=== PATIENT | female | born 1990 | race Caucasian/White ===

== ENCOUNTER 2017-04-25 16:09 | Emergency (ER) | payer BC ==
[2017-04-25 17:04] VITALS: BP 103/71
--- NOTE | 2017-04-25 17:39 | UC ---
Ear Complaint HPI - HPI Summary HPI Summary: patient c/o earache starting a day ago right more than left. She has chronic nasal congestion and post nasal drip, specially for the past week. Denies cough , fever, hearing loss or myalgias. Currently on prednisone 5mg po daily and ASA as part of her fertility treatment. LMD 2 weeks ago. - History of Current Complaint Chief Complaint: UCEar Stated Complaint: EAR PAIN Time Seen by Provider: 04/25/17 17:19 Hx Last Menstrual Period: 2 wks ago Pain Intensity: 7 - Allergies/Home Medications Allergies/Adverse Reactions: Allergies Allergy/AdvReac Type Severity Reaction Status Date / Time codeine Allergy Rash Verified 04/25/17 17:05 Home Medications: Home Medications Aspirin EC Low Dose* [Ecotrin EC Low Dose 81 MG*] 1 tab PO DAILY 04/25/17 [ History Confirmed 04/25/17] Cholecalciferol TAB* [Vitamin D TAB*] 4,000 unit PO DAILY 04/25/17 [History Confirmed 04/25/17] Letrozole 5 mg PO DAILY 04/25/17 [History Confirmed 04/25/17] Naltrexone TAB* 3 mg PO DAILY 04/25/17 [History Confirmed 04/25/17] Pnv No.103/Folic/Om3s/Fish Oil [ Gummies] 4 tab PO DAILY 04/25/17 [ History Confirmed 04/25/17] predniSONE TAB* [Deltasone TAB*] 1 tab PO DAILY 04/25/17 [History Confirmed ] PMH/Surg Hx/FS Hx/Imm Hx Previously Healthy: Yes - Surgical History Surgical History: None - Social History Alcohol Use: None Substance Use Type: None Smoking Status (MU): Never Smoked Tobacco Review of Systems ENT: Ear Ache, Nasal Discharge, Sinus Congestion All Other Systems Reviewed And Are Negative: Yes Physical Exam Triage Information Reviewed: Yes Appearance: Well-Appearing, No Pain Distress, Well-Nourished Vital Signs: Initial Vital Signs Temp 97.9 F 04/25/17 17:01 Pulse 81 04/25/17 17:01 Resp 12 04/25/17 17:01 BP 103/71 04/25/17 17:01 Pulse Ox 100 04/25/17 17:01 Vital Signs Reviewed: Yes Eyes: Positive: Conjunctiva Clear ENT: Positive: Pharynx normal, TMs normal, Uvula midline Neck: Positive: Supple, Nontender, No Lymphadenopathy Respiratory: Positive: Chest non-tender, Lungs clear, Normal breath sounds, No respiratory distress Cardiovascular: Positive: RRR, No Murmur, Pulses Normal, Brisk Capillary Refill Skin Exam: Normal Ear Complaint Course/Dx - Course Course Of Treatment: Physical exam was normal, patient is flying in 5 days, start decongestant and flonase along with nasal toileting with normal saline. F/ u PCP, eustachian tube dysfunction. - Differential Dx/Diagnosis Provider Diagnoses: Earache. Eustachian tube dysfunction Discharge - Discharge Plan Condition: Stable Disposition: HOME Prescriptions: Fexofenadine/Pseudoephedrine [Radha-D 24 Hour Tablet] 1 each PO DAILY PRN #30 tab.er.24h PRN Reason: Congestion Fluticasone NASAL SPRAY 50MCG* [Flonase NASAL SPRAY 50MCG*] 2 spray BOTH NARES DAILY 7 Days #1 btl Patient Education Materials: Earache (ED) Referrals: Montez Dominguez NP [Primary Care Provider] -
== END 2017-04-25 17:37 | disposition home or self-care (01) ==
LOC: UCEAST 16:09
DX: H92.03 Otalgia, bilateral (principal); H69.90 Unspecified Eustachian tube disorder, unspecified ear; Z88.5 Allergy status to narcotic agent
CPT/HCPCS: 99212; G0463

== ENCOUNTER 2017-08-24 18:40 | Emergency (ER) | payer BC ==
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
[2017-08-24 21:32] LABS: Urine Appearance Cloudy; Urine Blood Negative (Negative); Urine Color Yellow; Urine Ketones Negative (Negative); Urine Protein 1+(30 mg/dL) (Negative); Urine Red Blood Cell 2+(6-10/hpf) (Absent); Urine Specific Gravity 1.027 (1.010-1.030); Urine Urobilinogen Negative (Negative); Urine White Blood Cell 1+(6-10/hpf) (Absent)
[2017-08-24 22:41] VITALS: BP 96/67
--- NOTE | 2017-08-25 07:41 | RAD ---
Indication: , trauma. Real-time sonography of the was performed. There is a single intrauterine gestation in cephalic presentation. There is anterior placenta without evidence of placenta previa. heart activity is noted at 1 43 bpm. movement is noted. Amniotic fluid index is within normal limits. The cervix is long and closed. The BPD measures 4.5 cm corresponding to gestational age of 19 weeks 4 days. Head circumference measures 16.7 cm corresponding to gestational age of 19 weeks 3 days. Abdominal discomfort measures 14.1 cm corresponding to gestational age of 19 weeks 4 days. Femur length measures 3.0 cm corresponding to gestational age of 19 weeks 3 days. Estimated gestational age is 19 weeks 4 days. Estimated weight is 291 g. No evidence of placental abruption is noted. IMPRESSION: Single intrauterine gestation with gestational age of 19 weeks 4 days. This is undetermined on today's initial ultrasound. Estimated date of delivery is January 18, 2018. heart activity and movement is noted. No evidence of placental abruption.
== END 2017-08-24 22:40 | disposition home or self-care (01) ==
LOC: ED 18:40
DX: O26.892 Other specified pregnancy related conditions, second trimester (principal); S39.91XA Unspecified injury of abdomen, initial encounter; W50.1XXA Accidental kick by another person, initial encounter; Y93.9 Activity, unspecified; Y92.9 Unspecified place or not applicable; R10.31 Right lower quadrant pain; Z3A.19 19 weeks gestation of pregnancy; Z88.5 Allergy status to narcotic agent; Z82.49 Family history of ischemic heart disease and other diseases of the circulatory system; Z83.49 Family history of other endocrine, nutritional and metabolic diseases; Z80.8 Family history of malignant neoplasm of other organs or systems
CPT/HCPCS: 76815; 81003; 81015; 87086; 99282

== ENCOUNTER 2018-01-14 12:06 | Inpatient (IN) | payer BC ==
--- NOTE | 2018-01-14 12:36 | HP ---
General Information - Reason for Visit contractions since midnight increasing in intensity and frequency - General Information Maternal Age: 27 Grav: 1 Para: 0 SAB: 0 IEA: 0 Estimated Due Date: 01/18/18 Determined By: Early Ultrasound Maternal Blood Type and Rh: A Positive - Results this Serology/RPR Result: Non-Reactive Rubella Result: Immune HBsAg Result: Negative - 07/15/2017 HIV Result: Negative - 07/15/2017 GBS Culture Result: Positive Past Medical History Delivery History: See Records Pertinent Past Medical History: See Records - anixety, PCOS, infertility Pertinent Past Surgical History: None Pertinent Family History: See Records - hyperthyroid, HTN, melanoma, dementia Review of Systems Constitutional: Uncomfortable CV Complaint: No Respiratory: Shortness of Breath: No Gastrointestinal: No Nausea/Vomiting, Normal Bowel Movement Genitourinary: No Dysuria, No Bleeding, No Leaking Fluid Musculoskeletal: Back Pain, Contractions Neurological: No Headache, No Visual Changes Movement: Normal Exam Allergies/Adverse Reactions: Allergies codeine Allergy (Verified 01/09/18 15:52) Rash BP: 123/77, O2:96%, T:98.6, R:18, P:94 - Measurements Height: 5 ft 2 in Weight: 162 lb Body Mass Index (BMI): 29.6 Pre- Weight: 123 lb - Exam Breast: Breast Exam Deferred CVA: No CVA Tenderness Extremities: No Edema Heart: Normal Rhythm/Heart Sounds HEENT: No Significant Findings Lungs: Clear Bilaterally Rectal: Rectal Exam Deferred Reflexes: DTR 2+ Thyroid: No Thyromegaly - Abdominal Exam Abdomen Exam: Non-Tender, Fundal Height Consistent with Dates - Ultrasound/Biophysical Profile Ultrasound Status: Not Done Targeted Exam Findings Estimated Weight: 7lbs 14oz Cervical Exam: 4cm Effacement: 80% Station: -2 Presenting Part: Vertex Membrane Status: Intact Bleeding/Discharge: None EFM Findings - External Monitor Findings Baseline Heart Rate: 130 External Monitor Findings: Accelerations Present, No Pattern of Variable or Late Decelerations, Variability Moderate, Baseline Stable Contractions: Regular, Moderate, 45-90 Seconds - 4-5 min Assessment/Plan - Assessment 27 y.o. 39w3d, labor. GBS positive - Obstetrical Risk Factors Obstetrical Risk Factors: GBS Positive, Assisted Reproduction - Plan Plan: Antibiotic Prophylaxis, Admit - Anticipate Vaginal Delivery - Date/Time of Admission Date of Admission: 01/14/18 Time of Admission: 12:25
[2018-01-14 12:57] LABS: ABS Basophils 0 10^3/ul (0-0.2); ABS Eosinophils 0.1 10^3/ul (0-0.6); ABS Lymphocytes 2.2 10^3/ul (1.0-4.8); ABS Monocytes 0.8 10^3/ul (0-0.8); ABS Neutrophils 9.2 10^3/ul (1.5-7.7); ABS Nucleated RBC 0 10^3/ul; Eosinophil % 0.9 %; Hematocrit 31 % (35-47); Hemoglobin 10.6 g/dl (12.0-16.0); Lymphocyte % 17.4 %; Mean Corpuscular HGB Conc 34 g/dl (31-36); Mean Corpuscular Hemoglobin 30 pg (27-31); Mean Corpuscular Volume 87 fL (80-97); Mean Platelet Volume 8.6 fL (7.4-10.4); Nucleated Red Blood Cells % 0; Platelet Count 223 10^3/ul (150-450); Red Cell Distribution Width 13 % (10.5-15); White Blood Count 12.4 10^3/ul (3.5-10.8)
[2018-01-14] MEDS ORDERED: Penicillin G Potassium IV* 5,000,000 UNITS in NS 0.9% 100 ML* 100 ML IVPB ONE (13:00)
[2018-01-14] MEDS ORDERED: OBEPIDURAL* 250 ML EPIDURAL ONE (15:05)
[2018-01-14] MEDS ORDERED: Sodium Citrate/Citric Acid* 15 ML UDC PO PRN (15:24)
[2018-01-14] MEDS ORDERED: Famotidine TAB* 20 MG PO PRN (15:24)
[2018-01-14] MEDS ORDERED: EPHEDrine (Pressors)* 50 MG/ML VIAL IV PUSH PRN (15:24)
[2018-01-14] MEDS: Phenylephrine IV* 40 MCG/ML 10 ML SYRINGE IV PUSH PRN ×2 (15:27→15:53)
[2018-01-14] MEDS ORDERED: OBEPIDURAL* 250 ML EPIDURAL SCH (16:00)
--- NOTE | 2018-01-14 16:44 | PN ---
Progress Note - Progress Note Date of Service: 01/14/18 SOAP: Subjective: [Pt comfortable after epidural. Pt denies pressure.] Objective: [BP:123/77, T:98.6, R:18, P:94, O2:99% cervix: 9/100/-1] Assessment: [27 y.o. , 39w3d EGA, active labor] Plan: [1) Con't GBS prophylaxis 2) position changes for descent 3) Anticipate vaginal delivery]
[2018-01-14] MEDS ORDERED: Penicillin G Potassium IV* 2,500,000 UNITS in NS 0.9% 100 ML* 100 ML IVPB SCH (17:00)
[2018-01-14] MEDS ORDERED: Oxytocin in LR* 20 UNITS/1,000 ML BAG IVPB ONE (17:58)
--- NOTE | 2018-01-14 19:43 | PN ---
Progress Note - Progress Note Date of Service: 01/14/18 SOAP: Subjective: [Pt still comfortable with epidural, increased pressure.] Objective: [BP:125/74, R:20, T:99.5, P:91 cervix fully dilated +1 station FHT: baseline 180bpm, + accel, -decels, moderate variability, occasional late decels] Assessment: [27 y.o. , arrest of descent, Cat II tracing] Plan: [1) Position changes 2) O2 3) Stop pushing 4) Reevaluate in 20 minutes 5) Dr. Dey aware]
[2018-01-14] MEDS ORDERED: Morphine PF AMP (0.5MG/ML)* 5 MG/10 ML AMP ONE (20:29)
[2018-01-14] MEDS ORDERED: fentaNYL* 50 MCG/ML 2 ML VIAL (100 MCG VIAL) ONE ×2 (20:29→21:08)
[2018-01-14] MEDS ORDERED: OXYTOCIN* 10 UNITS/ML 1 ML VIAL ONE (20:30)
[2018-01-14] MEDS ORDERED: Chloroprocaine 2%* 20 ML VIAL ONE (20:30)
[2018-01-14] MEDS ORDERED: Phenylephrine INJ* 10 MG/ML 1 ML VIAL (10 MG) ONE (20:30)
[2018-01-14] MEDS ORDERED: Lidocaine 2% PF* 10 ML AMP ONE (20:30)
[2018-01-14] MEDS ORDERED: Sodium Bicarbonate 8.4% SYR* 10 ML SYRINGE ONE (20:30)
[2018-01-14] MEDS ORDERED: ceFOXitin 2 GM IVPREMIX* 2 GM/50 ML BAG ONE (20:36)
[2018-01-14] MEDS ORDERED: KETAMINE HCL* 50 MG/ML 10 ML VIAL ONE (20:56)
[2018-01-14] MEDS ORDERED: Ondansetron INJ* 2 MG/ML VIAL ONE (21:11)
[2018-01-14] MEDS ORDERED: Naloxone* 0.4 MG/ML 1 ML VIAL IV PRN ×2 (21:22→21:23)
[2018-01-14] MEDS ORDERED: Ondansetron INJ* 2 MG/ML VIAL IV PRN ×2 (21:22→21:23)
[2018-01-14] MEDS ORDERED: Nalbuphine* 10 MG/ML 1 ML VIAL IV PRN (21:23)
[2018-01-14] MEDS ORDERED: oxyCODONE/Acetamin 5/325 MG* TAB PO PRN (21:23)
[2018-01-14] MEDS ORDERED: diPHENhydraMINE IV* 50 MG/ML 1 ml VIAL (BENADRYL) IV PRN (21:23)
[2018-01-14] MEDS ORDERED: Ketorolac INJ* 30 MG/ML 1 ML VIAL ONE (21:33)
[2018-01-14] MEDS ORDERED: Glycerin ADULT SUPP PR PRN (21:53)
[2018-01-14] MEDS ORDERED: Tetan/Diph/Pertus SYR(Tdap)* 0.5 ML SYR(BOOSTRIX) use SYR IM ONE (21:53)
[2018-01-14] MEDS ORDERED: Witch Hazel PAD* JAR TOPICAL PRN (21:53)
[2018-01-14] MEDS ORDERED: Dibucaine 1% 28.35 GM TUBE PR PRN (21:53)
[2018-01-14] MEDS ORDERED: Zolpidem TAB* 5 MG PO PRN (21:53)
[2018-01-14] MEDS ORDERED: Oxytocin in LR* 20 UNITS/1,000 ML BAG IVPB SCH (22:00)
[2018-01-14] MEDS: fentaNYL* 50 MCG/ML 2 ML VIAL (100 MCG VIAL) IV PRN ×4 (22:20→22:52)
[2018-01-15] MEDS: oxyCODONE/Acetamin 5/325 MG* TAB PO PRN ×3 (00:38→22:02)
[2018-01-15] MEDS: Ketorolac INJ* 30 MG/ML 1 ML VIAL IV PRN ×2 (04:18→10:40)
[2018-01-15] MEDS: Simethicone TAB* 80 MG TAB.CHEW PO SCH ×4 (07:45→22:01)
[2018-01-15] MEDS: Docusate CAP* 100 MG PO SCH ×3 (07:45→22:01)
[2018-01-15 08:42] LABS: ABS Basophils 0 10^3/ul (0-0.2); ABS Eosinophils 0 10^3/ul (0-0.6); ABS Lymphocytes 1.7 10^3/ul (1.0-4.8); ABS Monocytes 1.3 10^3/ul (0-0.8); ABS Neutrophils 14.3 10^3/ul (1.5-7.7); ABS Nucleated RBC 0 10^3/ul; Eosinophil % 0.2 %; Hematocrit 21 % (35-47); Hemoglobin 7.1 g/dl (12.0-16.0); Lymphocyte % 9.9 %; Mean Corpuscular HGB Conc 34 g/dl (31-36); Mean Corpuscular Hemoglobin 30 pg (27-31); Mean Corpuscular Volume 88 fL (80-97); Mean Platelet Volume 8.5 fL (7.4-10.4); Nucleated Red Blood Cells % 0; Platelet Count 193 10^3/ul (150-450); Red Blood Count 2.36 10^6/ul (4.00-5.40); Red Cell Distribution Width 13 % (10.5-15); White Blood Count 17.4 10^3/ul (3.5-10.8)
--- NOTE | 2018-01-15 09:42 | OP ---
DATE OF OPERATION: 01/14/18 - ROOM #102 DATE OF : 88 SURGEON: Morgan Dey MD ANESTHESIA: Epidural. PRE-OP DIAGNOSIS: Arrest of descent and category 2 tracing remote from delivery. POST-OP DIAGNOSIS: Arrest of descent and category 2 tracing remote from delivery.Thick meconium. OPERATIVE PROCEDURE: Low transverse section. ESTIMATED BLOOD LOSS: 800 cc. COMPLICATIONS: None. FINDINGS: This is a 27-year-old 1, para 0, presented in early labor. She progressed up to fully dilated, pushed for an hour and a half. At approximately an hour and a half of pushing with heart rate in the 180s and the patient had been asked to stop pushing at that point. heart rate came down into the 160s when review the strips that the initial baseline was in the 130s, 140s and there were apparent decels with pushing during that hour and a half. I discussed with mom, risks, benefits, alternatives, indications of section and recommended section strongly because of the uncertainty of the elevated heart rate and the lack of descent after an hour and a half of pushing. On my exam, it showed that the vertex was still at -1 station and just at the inlet. She was accepting of this. The risks, benefits, alternatives and indications were discussed with the patient including risks including but not limited to bleeding, infection, injury to bowel, bladder, uterus, nerves and blood vessels. At the time of section, she had a viable male.Thick meconium. Apgars 9 and 9. The weight was 7 pounds 2 ounces. Normal-appearing uterus, fallopian tubes, and ovaries. DESCRIPTION OF PROCEDURE: The patient was identified and procedure identified as a low transverse section. The patient was taken to the operating room, prepped and dapped in the usual fashion in the left lateral recumbent position under epidural anesthesia. A Pfannenstiel incision was made in the abdomen and carried down through fat, fascia, and peritoneum. A transverse incision was made in the lower uterine segment and extended laterally using blunt dissection. The above was delivered through the incision with ease. The cord was doubly clamped and cut and the was handed to the awaiting supervisor feed house. Cord blood was obtained. Placenta delivered spontaneously. The uterus was wiped out with a wet lap sponge. The uterine incision was then closed with 0 Polysorb in a running fashion. A second layer was used to imbricate the first layer. Good hemostasis was verified. Uterus was placed back in the abdominal cavity. The gutters were wiped out with a wet lap sponge. Good hemostasis again verified in the peritoneal cavity and the peritoneum was then closed using 3-0 Polysorb in a running fashion. Hemostasis was achieved in the subrectus layer. The fascia was closed using 0 Polysorb in a running fashion. Good hemostasis in the subcu. The skin was closed with 4-0 Monocryl in a subcuticular fashion. All sponge and instrument counts were correct. The patient was returned to recovery room in stable condition. [id number]/[facility] #: [id number] JULIO CÉSAR
[2018-01-15] MEDS: Ferrous Gluconate TAB* 324 MG TAB PO SCH ×2 (10:40→22:01)
[2018-01-15] MEDS: Acetaminophen TAB* 325 MG PO PRN ×2 (13:36→17:50)
[2018-01-15] MEDS ORDERED: Ibuprofen TAB* 600 MG ONE (16:45)
[2018-01-16] MEDS: Ibuprofen TAB* 600 MG PO PRN ×4 (00:04→20:07)
[2018-01-16] MEDS: oxyCODONE/Acetamin 5/325 MG* TAB PO PRN ×3 (04:42→22:48)
[2018-01-16 06:38] LABS: ABS Basophils 0 10^3/ul (0-0.2); ABS Eosinophils 0.2 10^3/ul (0-0.6); ABS Lymphocytes 2.5 10^3/ul (1.0-4.8); ABS Neutrophils 11.1 10^3/ul (1.5-7.7); ABS Nucleated RBC 0 10^3/ul; Eosinophil % 1.3 %; Hematocrit 18 % (35-47); Hemoglobin 6.2 g/dl (12.0-16.0); Lymphocyte % 17.1 %; Mean Corpuscular HGB Conc 34 g/dl (31-36); Mean Corpuscular Hemoglobin 30 pg (27-31); Mean Corpuscular Volume 88 fL (80-97); Nucleated Red Blood Cells % 0; Platelet Count 178 10^3/ul (150-450); Red Blood Count 2.09 10^6/ul (4.00-5.40); Red Cell Distribution Width 13 % (10.5-15); White Blood Count 14.9 10^3/ul (3.5-10.8)
[2018-01-16] MEDS: Docusate CAP* 100 MG PO SCH ×3 (10:36→20:06)
[2018-01-16] MEDS: Simethicone TAB* 80 MG TAB.CHEW PO SCH ×3 (10:36→20:07)
[2018-01-16] MEDS: Ferrous Gluconate TAB* 324 MG TAB PO SCH ×2 (10:36→20:07)
[2018-01-16] MEDS: Acetaminophen TAB* 325 MG PO PRN (10:36)
[2018-01-16 15:46] LABS: ABS Basophils 0 10^3/ul (0-0.2); ABS Eosinophils 0.1 10^3/ul (0-0.6); ABS Monocytes 1.1 10^3/ul (0-0.8); ABS Neutrophils 11.8 10^3/ul (1.5-7.7); ABS Nucleated RBC 0 10^3/ul; Eosinophil % 0.9 %; Hematocrit 23 % (35-47); Hemoglobin 7.8 g/dl (12.0-16.0); Lymphocyte % 13.3 %; Mean Corpuscular HGB Conc 33 g/dl (31-36); Mean Corpuscular Hemoglobin 29 pg (27-31); Mean Corpuscular Volume 88 fL (80-97); Mean Platelet Volume 7.9 fL (7.4-10.4); Nucleated Red Blood Cells % 0; Platelet Count 212 10^3/ul (150-450); Red Blood Count 2.66 10^6/ul (4.00-5.40); Red Cell Distribution Width 14 % (10.5-15)
[2018-01-17] MEDS: Ibuprofen TAB* 600 MG PO PRN ×3 (04:22→20:17)
[2018-01-17] MEDS: Ferrous Gluconate TAB* 324 MG TAB PO SCH ×2 (08:50→20:16)
[2018-01-17] MEDS: Simethicone TAB* 80 MG TAB.CHEW PO SCH ×4 (08:50→20:16)
[2018-01-17] MEDS: oxyCODONE/Acetamin 5/325 MG* TAB PO PRN ×3 (08:50→20:22)
[2018-01-17] MEDS: Docusate CAP* 100 MG PO SCH ×3 (08:50→20:16)
[2018-01-17] MEDS: Acetaminophen TAB* 325 MG PO PRN (16:51)
[2018-01-18] MEDS: oxyCODONE/Acetamin 5/325 MG* TAB PO PRN (06:50)
[2018-01-18] MEDS: Ibuprofen TAB* 600 MG PO PRN (06:50)
[2018-01-18 08:37] VITALS: BP 104/62
[2018-01-18] MEDS: Simethicone TAB* 80 MG TAB.CHEW PO SCH (10:02)
[2018-01-18] MEDS: Docusate CAP* 100 MG PO SCH (10:02)
[2018-01-18] MEDS: Ferrous Gluconate TAB* 324 MG TAB PO SCH (10:02)
== END 2018-01-18 12:13 | disposition home or self-care (01) | DRG 540 ==
LOC: MCHOBOUT 12:06 → MCHOB 12:28
PROVIDERS: ADMIT Midwife; ATTEND Obstetrics & Gynecology
PROC: 10D00Z1 Extraction of Products of Conception, Low, Open Approach (ICD-10-PCS; principal; 2018-01-14 20:39)
PROC: 30233N1 Transfusion of Nonautologous Red Blood Cells into Peripheral Vein, Percutaneous Approach (ICD-10-PCS; 2018-01-16)
DX: O32.4XX0 Maternal care for high head at term, not applicable or unspecified (principal); O72.0 Third-stage hemorrhage; D62 Acute posthemorrhagic anemia; O99.824 Streptococcus B carrier state complicating childbirth; O76 Abnormality in fetal heart rate and rhythm complicating labor and delivery; O77.0 Labor and delivery complicated by meconium in amniotic fluid; O90.81 Anemia of the puerperium; Z3A.39 39 weeks gestation of pregnancy; Z37.0 Single live birth
CPT/HCPCS: 36415; 85025; 86850; 86900; 86901; 86922; 88307; A9270-GY; J0694; J1885; J2001; J2400; J2405; J2540; J2590; J3010; P9040

== ENCOUNTER 2019-02-27 13:31 | Emergency (ER) | payer BC ==
--- NOTE | 2019-02-27 13:43 | ED ---
Abdominal Pain/Female - HPI Summary HPI Summary: 28 year old female presents with a chief complaint of lower abdominal pain secondary to IVF retrieval prep, starting yesterday. Patient is currently on IVF and was supposed to retrieve it tomorrow. She did a Lupron trigger yesterday but this caused her to vomit, have a fever, nausea, and chills. She reports seeing Dr. Tacos Vásquez in the past for her IVF, and claims that she has swollen ovaries with mature 25 eggs in them as well as high estrogen levels. She was due for a second Lupron trigger today, but was unable to do it due to the pain. - History of Current Complaint Chief Complaint: EDAbdPain Stated Complaint: ABD PAIN PER Time Seen by Provider: 02/27/19 13:35 Hx Obtained From: Patient Hx Last Menstrual Period: 2 wks ago ?: No Onset/Duration: Sudden Onset, Lasting Hours Timing: Constant Severity Initially: Severe Severity Currently: Severe Pain Intensity: 8 Pain Scale Used: 0-10 Numeric Location: Suprapubic Character: Sharp Aggravating Factor(s): Other: - Lupron trigger Alleviating Factor(s): Nothing Associated Signs and Symptoms: Positive: Fever, Nausea, Vomiting Allergies/Adverse Reactions: Allergies Allergy/AdvReac Type Severity Reaction Status Date / Time codeine Allergy Rash Verified 01/09/18 15:52 PMH/Surg Hx/FS Hx/Imm Hx Previously Healthy: Yes Endocrine/Hematology History: Denies: Hx Diabetes, Hx Thyroid Disease Cardiovascular History: Denies: Hx Hypertension Respiratory History: Denies: Hx Asthma, Hx Chronic Obstructive Pulmonary Disease (COPD) GI History: Denies: Hx Ulcer - Surgical History Surgical History: None Surgery Procedure, Year, and Place: none Infectious Disease History: No Infectious Disease History: Reports: Hx Clostridium Difficile Denies: Hx Hepatitis, Hx Human Immunodeficiency Virus (HIV), History Other Infectious Disease, Traveled Outside the [place] in Last 30 Days - Family History Known Family History: Positive: Hypertension, Other Family History: thyroid CA, HLD - Social History Alcohol Use: None Substance Use Type: Reports: None Smoking Status (MU): Never Smoked Tobacco Have You Smoked in the Last Year: No Review of Systems Positive: Fever, Chills Positive: Abdominal Pain, Vomiting, Nausea All Other Systems Reviewed And Are Negative: Yes Physical Exam - Summary Physical Exam Summary: Appearance: The patient is well-nourished in no acute distress and in no acute pain. Skin: The skin is warm and dry, and skin color reflects adequate perfusion. HEENT: The head is normocephalic and atraumatic. The pupils are equal and reactive. The conjunctivae are clear and without drainage. Nares are patent and without drainage. Mouth reveals moist mucous membranes, and the throat is without erythema and exudate. The external ears are intact. The ear canals are patent and without drainage. The tympanic membranes are intact. Neck: The neck is supple with full range of motion and non-tender. There are no carotid bruits. There is no neck vein distension. Respiratory: Chest is non-tender. Lungs are clear to auscultation and breath sounds are symmetrical and equal. Cardiovascular: Heart is regular rate and rhythm. There is no murmur or rub auscultated. There is no peripheral edema and pulses are symmetrical and equal. Abdomen: The abdomen is soft. There are normal bowel sounds heard in all four quadrants and there is no organomegaly palpated. Suprapubic tenderness. Musculoskeletal: There is no back tenderness noted. Extremities are non-tender with full range of motion. There is good capillary refill. There is no peripheral edema or calf tenderness elicited. Neurological: Patient is alert and oriented to person, place and time. The patient has symmetrical motor strength in all four extremities. Cranial nerves are grossly intact. Deep tendon reflexes are symmetrical and equal in all four extremities. Psychiatric: The patient has an appropriate affect and does not exhibit any anxiety or depression. Triage Information Reviewed: Yes Vital Signs On Initial Exam: Initial Vitals Temp Pulse Resp BP Pulse Ox 97.3 F 105 19 118/61 100 02/27/19 13:31 02/27/19 13:31 02/27/19 13:31 02/27/19 13:31 02/27/19 13:31 Vital Signs Reviewed: Yes Procedures - Sedation Patient Received Moderate/Deep Sedation with Procedure: No Diagnostics - Vital Signs Vital Signs Temp Pulse Resp BP Pulse Ox 02/27/19 13:31 97.3 F 105 19 118/61 100 - Laboratory Result Diagrams: 02/27/19 13:56 02/27/19 13:57 Lab Statement: Any lab studies that have been ordered have been reviewed, and results considered in the medical decision making process. - Ultrasound Pelvic US Ultrasound Interpretation Completed By: Radiologist Summary of Ultrasound Findings: IMPRESSION: 1. NO SONOGRAPHIC EVIDENCE OF OVARIAN TORSION. 2. SEVERAL BILATERAL OVARIAN FOLLICLES. CONSIDERATIONS INCLUDE OVARIAN HYPERSTIMULATION SYNDROME AND POLYCYSTIC OVARIAN DISEASE. 3. TRACE FREE FLUID IN THE PELVIS. An ED physician has reviewed this report. Abdominal Pain Fem Course/Dx - Course Course Of Treatment: In agreement with this plan. He is going to see her in the office tomorrow. I spoke with Dr. Osman a couple of times after the patient presented. He recommended labs and ultrasound which returned showing only hyperstimulation syndrome. Her primary symptom was nausea which improved with Zofran. I recommended continued Zofran and he agreed with this plan. He is going to see her in the office tomorrow. - Diagnoses Provider Diagnoses: Ovarian hyperstimulation syndrome Discharge ED - Sign-Out/Discharge Documenting (check all that apply): Patient Departure - Discharge Home - Discharge Plan Condition: Stable Disposition: HOME Prescriptions: Ondansetron ODT TAB* [Zofran Odt TAB*] 4 mg PO Q6H PRN #20 tab.odt PRN Reason: Nausea/Vomiting Patient Education Materials: Insemination (DC) Referrals: Fahad GONZALEZ,Tacos Mejia [Medical Doctor] - Additional Instructions: Follow up with Dr. Vásquez tomorrow. Return to the Emergency Room if you experience new or worsened symptoms. - Billing Disposition and Condition Condition: STABLE Disposition: Home - Attestation Statements Document Initiated by Watson: Yes Documenting Scribe: Gt Amezcua Provider For Whom Watson is Documenting (Include Credential): Sushil Lincoln MD Scribe Attestation: Gt Chan, scribed for Sushil Lincoln MD on 02/27/19 at 1842. Scribe Documentation Reviewed: Yes Provider Attestation: The documentation as recorded by the Gt hernandes accurately reflects the service I personally performed and the decisions made by me, Sushil Lincoln MD Status of Scribe Document: Viewed
[2019-02-27] MEDS ORDERED: Ondansetron INJ* 2 MG/ML VIAL IV ONE (13:49)
[2019-02-27 14:07] LABS: ABS Lymphocytes 1.9 10^3/ul (1.0-4.8); ABS Monocytes 0.8 10^3/ul (0-0.8); ABS Neutrophils 13.7 10^3/ul (1.5-7.7); Eosinophil % 0.2 %; Hematocrit 36 % (35-47); Hemoglobin 12.2 g/dL (12.0-16.0); Lymphocyte % 11.6 %; Mean Corpuscular HGB Conc 34 g/dL (31-36); Mean Corpuscular Hemoglobin 29 pg (27-31); Mean Corpuscular Volume 86 fL (80-97); Mean Platelet Volume 7.6 fL (7.4-10.4); Nucleated Red Blood Cells % 0.1; Platelet Count 283 10^3/uL (150-450); Red Blood Count 4.14 10^6 /uL (3.70-4.87); Red Cell Distribution Width 13 % (10-15); White Blood Count 16.5 10^3/uL (3.5-10.8)
[2019-02-27 14:23] LABS: Albumin 3.7 g/dL (3.2-5.2); Albumin/Globulin Ratio 1.3 (1-3); BUN/Creatinine Ratio 20.5 (8-20); C Reactive Protein 1.22 mg/L (<8.01); Calcium 8.5 mg/dL (8.6-10.3); EGFR Non-African American 94.3 (>60); Globulin 2.8 g/dL (2-4); Potassium 3.1 mmol/L (3.5-5.0); Total Bilirubin 0.5 mg/dL (0.2-1.0); Total Protein 6.5 g/dL (6.4-8.9)
[2019-02-27 14:29] LABS: HCG Pregnancy 0.84 mIU/mL
[2019-02-27] MEDS: NS 0.9% 1000 ML** 1,000 ML IV ONE ×2 (14:36→15:30)
[2019-02-27 16:00] VITALS: BP 93/46
== END 2019-02-27 15:59 | disposition home or self-care (01) ==
LOC: ED 13:31
DX: N98.1 Hyperstimulation of ovaries (principal); Z88.5 Allergy status to narcotic agent
CPT/HCPCS: 36415; 76856; 80053; 83605; 84702; 85025; 86140; 96374; 99282; J2405

== ENCOUNTER 2023-04-23 11:09 | Inpatient (IN) ==
[2023-04-23] MEDS ORDERED: Nalbuphine 10 MG/ML 1 ML VIAL IV PRN (11:25)
[2023-04-23] MEDS ORDERED: Prochlorperazine 5 mg/ml 2 ml VIAL (10 mg) IV PRN (11:25)
[2023-04-23] MEDS: Lactated Ringers 1000 ml BAG 1,000 ML IV ONE ×4 (11:50→23:37)
[2023-04-23] MEDS: Ondansetron 4 mg VIAL 2 MG/ML 2 ml VIAL IV PRN (11:58)
[2023-04-23] MEDS: Lactated Ringers 1000 ml BAG 1,000 ML IV SCH ×2 (12:04→20:00)
[2023-04-23 12:12] LABS: ABS Eosinophils 0.1 10^3/uL (0.0-0.5); ABS Lymphocytes 0.4 10^3/uL (1.0-4.8); ABS Monocytes 0.8 10^3/uL (0.0-0.9); ABS Neutrophils 9.7 10^3/uL (1.5-7.6); ABS Nucleated RBC 0.01 10^3/ul; Eosinophil % 0.5 %; Hematocrit 26.1 % (35-45); Hemoglobin 9.2 g/dL (11.5-14.3); Lymphocyte % 3.6 %; Mean Corpuscular Hemoglobin 31.3 pg (27-33); Mean Corpuscular Hgb Conc 35.1 g/dL (31-36); Mean Corpuscular Volume 89.1 fL (80-97); Mean Platelet Volume 7.6 fL (7.5-11.2); Nucleated Red Blood Cells % 0.1 %/100WBC (0.0-0.8); Platelet Count 171 10^3/uL (150-450); Red Blood Count 2.93 10^6/uL (3.63-4.92); Red Cell Distribution Width 13.7 % (12-17)
[2023-04-23] MEDS: Acetaminophen IV 1 GM/100ML 1,000 MG/100 ML BAG IV PRN (12:13)
[2023-04-23] MEDS: D5LR 1000 ml BAG 1,000 ML IV SCH (12:22)
[2023-04-23] MEDS: Buffered Lidocaine 1% SYRIN 1 ml INTRADERM ONE (12:22)
[2023-04-23 12:37] LABS: Albumin/Globulin Ratio 1.2 (1-3); Calcium 7.5 mg/dL (8.6-10.3); Creatinine, Serum 0.58 mg/dL (0.51-0.95); Globulin 2.6 g/dL (2-4); Potassium 3.2 mmol/L (3.5-5.0); Total Bilirubin 0.2 mg/dL (0.2-1.0); Total Protein 5.6 g/dL (6.4-8.9); eGFR CKD-EPI 122.5 (>60)
[2023-04-23 13:58] LABS: Urine Appearance Turbid; Urine Bilirubin Negative (Negative); Urine Blood Negative (Negative); Urine Color Yellow; Urine Glucose Negative (Negative); Urine Ketones 1+ (Negative); Urine Nitrite Negative (Negative); Urine Protein 1+ (>=30 mg/dL) (Negative); Urine Specific Gravity 1.024 (1.002-1.030); Urine Urobilinogen Negative (Negative); Urine pH 6.5 (5.0-8.0)
[2023-04-23 14:06] LABS: Urine Bacteria 1+ /HPF (Absent); Urine Red Blood Cell Trace(0-2/hpf) /HPF (0-Trace); Urine Squamous Epithelial Cell Present /HPF (Absent); Urine White Blood Cell Trace(0-5/hpf) /HPF (0-Trace)
[2023-04-23 14:20] LABS: Urine Benzodiazepine Screen None Detected (None Detect); Urine Cannabinoids Screen None Detected (None Detect); Urine Opiates Screen None Detected (None Detect)
[2023-04-23] MEDS: Ondansetron ODT 4 mg TAB 4 MG TAB PO PRN (18:46)
[2023-04-23 19:55] LABS: C Reactive Protein 8.8 mg/L (<8.01)
[2023-04-23 20:13] LABS: ABS Lymphocytes 0.4 10^3/uL (1.0-4.8); ABS Monocytes 0.6 10^3/uL (0.0-0.9); ABS Neutrophils 7.9 10^3/uL (1.5-7.6); Eosinophil % 0.2 %; Hemoglobin 8.4 g/dL (11.5-14.3); Lymphocyte % 4.9 %; Mean Corpuscular Hgb Conc 36.4 g/dL (31-36); Mean Corpuscular Volume 88.1 fL (80-97); Mean Platelet Volume 8.3 fL (7.5-11.2); Platelet Count 147 10^3/uL (150-450); Red Blood Count 2.61 10^6/uL (3.63-4.92); Red Cell Distribution Width 13.9 % (12-17)
[2023-04-23 20:41] LABS: Anion Gap 8 mmol/L (2-16); Blood Urea Nitrogen 6 mg/dL (6-24); CO2 Carbon Dioxide 21 mmol/L (22-32); Chloride 105 mmol/L (101-111); Creatinine, Serum 0.49 mg/dL (0.51-0.95); Glucose 96 mg/dL (70-100); Sodium 134 mmol/L (135-145); eGFR CKD-EPI 127.5 (>60)
[2023-04-23] MEDS: Betamethasone 6 mg/ml 5 ml VIAL IM SCH (20:53)
[2023-04-23 21:03] LABS: Erythrocyte Sed Rate 40 mm/Hr (0-19)
[2023-04-23] MEDS: Phenylephrine DRIP 0.2 MG/ML in NS 0.9% 250 ML (PHA mix) IV SCH (22:10)
[2023-04-23] MEDS: Furosemide 20 mg/2 ml IV VIAL IV SLOW PU ONE (23:21)
[2023-04-23] MEDS: cefTRIAXone 1 gm/50 mL D5W 1 GM/50 ML BAG IV ONE (23:30)
[2023-04-23] MEDS: Phenylephrine 40 mcg/mL 10mL (400mcg) SYRINGE ONE (23:36)
[2023-04-24 00:37] LABS: Venous Bicarbonate HCO3 25.2 mmol/L (24-28)
[2023-04-24 00:43] LABS: Hematocrit 27.8 % (35-45); Hemoglobin 9.8 g/dL (11.5-14.3); Mean Corpuscular Hemoglobin 31.3 pg (27-33); Mean Corpuscular Hgb Conc 35.1 g/dL (31-36); Mean Platelet Volume 7.9 fL (7.5-11.2); Platelet Count 191 10^3/uL (150-450); Red Blood Count 3.13 10^6/uL (3.63-4.92); White Blood Count 14.1 10^3/uL (3.8-11.8)
[2023-04-24 01:33] LABS: Potassium 3.8 mmol/L (3.5-5.0)
[2023-04-24 01:34] LABS: Albumin 3.3 g/dL (3.2-5.2); Albumin/Globulin Ratio 1.2 (1-3); Calcium 7.7 mg/dL (8.6-10.3); Creatinine, Serum 0.59 mg/dL (0.51-0.95); Globulin 2.8 g/dL (2-4); Magnesium 1.3 mg/dL (1.9-2.7); Total Bilirubin 0.4 mg/dL (0.2-1.0); Total Protein 6.1 g/dL (6.4-8.9)
[2023-04-24] MEDS ORDERED: Morphine 2 MG/ML SYRINGE IV PRN (01:54)
[2023-04-24 02:13] LABS: ABS Basophils 0.1 10^3/uL (0.0-0.1); ABS Lymphocytes 0.8 10^3/uL (1.0-4.8); ABS Monocytes 0.7 10^3/uL (0.0-0.9); ABS Neutrophils 12.5 10^3/uL (1.5-7.6); ABS Nucleated RBC 0.03 10^3/ul; Eosinophil % 0.1 %; Lymphocyte % 5.7 %; Nucleated Red Blood Cells % 0.2 %/100WBC (0.0-0.8)
[2023-04-24] MEDS: Ondansetron 4 mg VIAL 2 MG/ML 2 ml VIAL IV ONE (02:20)
[2023-04-24 03:36] VITALS: BP 113/64
[2023-04-24] MEDS: Ondansetron 4 mg VIAL 2 MG/ML 2 ml VIAL ONE (04:11)
== END 2023-04-24 02:30 | disposition short-term general hospital (02) | DRG 566 ==
LOC: MCHOBOUT 11:09 → ICU 22:32
PROVIDERS: ADMIT Obstetrics & Gynecology; ATTEND Internal Medicine Pulmonary Disease

== ENCOUNTER 2023-05-27 15:32 | Inpatient (IN) ==
[2023-05-27] MEDS: Lactated Ringers 1000 ml BAG 1,000 ML IV ONE (16:55)
[2023-05-27 17:14] LABS: Hematocrit 29.2 % (35-45); Hemoglobin 10.1 g/dL (11.5-14.3); Mean Corpuscular Hemoglobin 30.3 pg (27-33); Mean Corpuscular Hgb Conc 34.6 g/dL (31-36); Mean Corpuscular Volume 87.5 fL (80-97); Mean Platelet Volume 8.2 fL (7.5-11.2); Platelet Count 259 10^3/uL (150-450); Red Blood Count 3.34 10^6/uL (3.63-4.92); Red Cell Distribution Width 13.8 % (12-17); White Blood Count 12.8 10^3/uL (3.8-11.8)
[2023-05-27] MEDS: Lactated Ringers 1000 ml BAG 1,000 ML IV SCH ×2 (17:28→22:05)
[2023-05-27] MEDS ORDERED: Ondansetron 4 mg VIAL 2 MG/ML 2 ml VIAL IV PRN (17:29)
[2023-05-27] MEDS ORDERED: HYDROmorphone 1 MG/1 ML SYRINGE IV PRN (17:29)
[2023-05-27] MEDS ORDERED: Naloxone 0.4 mg VIAL 0.4 mg/ml 1 ml VIAL IV PRN (17:29)
[2023-05-27] MEDS ORDERED: Levalbuterol 0.63MG/3ML NEB UNIT OF USE INH PRN (17:29)
[2023-05-27] MEDS: Sodium Citrate/Citric Acid LIQ 15 ML UDC PO ONE (17:59)
[2023-05-27 18:13] LABS: ABS Eosinophils 0.2 10^3/uL (0.0-0.5); ABS Lymphocytes 2.3 10^3/uL (1.0-4.8); ABS Neutrophils 9.1 10^3/uL (1.5-7.6); ABS Nucleated RBC 0.02 10^3/ul; Eosinophil % 1.7 %; Lymphocyte % 18.5 %; Nucleated Red Blood Cells % 0.1 %/100WBC (0.0-0.8)
[2023-05-27] MEDS ORDERED: Phenylephrine 1% NASAL 15 ML BOT ONE (18:51)
[2023-05-27] MEDS ORDERED: Phenylephrine IV 10 MG/ML 1 ml VIAL ONE (18:52)
[2023-05-27] MEDS ORDERED: Dexamethasone IV 4 MG/ML VIAL 1 ml VIAL ONE (18:59)
[2023-05-27] MEDS ORDERED: Oxytocin 10 UNITS/ML 1 ML VIAL ONE ×3 (18:59→19:48)
[2023-05-27] MEDS ORDERED: Ondansetron 4 mg VIAL 2 MG/ML 2 ml VIAL ONE (18:59)
[2023-05-27] MEDS ORDERED: Midazolam 2 mg/2 ml VIAL 1 mg/ml 2 ml VIAL (2 mg) ONE ×2 (19:18→19:28)
[2023-05-27] MEDS ORDERED: fentaNYL 100 mcg/2 ml 50 MCG/ML VIAL ONE (19:27)
[2023-05-27 19:55] LABS: Urine Appearance Clear; Urine Bilirubin Negative (Negative); Urine Blood Negative (Negative); Urine Color Colorless; Urine Glucose Negative (Negative); Urine Ketones Negative (Negative); Urine Nitrite Negative (Negative); Urine Protein Negative (Negative); Urine Urobilinogen Negative (Negative)
[2023-05-27 20:11] LABS: Urine Benzodiazepine Screen None Detected (None Detect); Urine Cannabinoids Screen None Detected (None Detect); Urine Opiates Screen None Detected (None Detect)
[2023-05-27] MEDS: Buffered Lidocaine 1% SYRIN 1 ml INTRADERM ONE (20:25)
[2023-05-27] MEDS: ceFOXitin 2 GM IVPREMIX 2 GM/50 ML BAG IVPB ONE (20:25)
[2023-05-27] MEDS: Acetaminophen IV 1 GM/100ML 1,000 MG/100 ML BAG IV ONE (20:30)
[2023-05-27] MEDS ORDERED: Glycerin ADULT 2.4 gm SUPP PR PRN (20:45)
[2023-05-27] MEDS ORDERED: Witch Hazel PAD JAR TOPICAL PRN (20:45)
[2023-05-27] MEDS: Oxytocin in LR 20,000 MILLI.UNIT/1,000 ML BAG IV SCH (21:37)
[2023-05-27] MEDS: Oxytocin in LR 20,000 MILLI.UNIT/1,000 ML BAG IV ONE (21:39)
[2023-05-28 06:48] LABS: ABS Lymphocytes 1.9 10^3/uL (1.0-4.8); ABS Monocytes 1.3 10^3/uL (0.0-0.9); ABS Neutrophils 17.4 10^3/uL (1.5-7.6); ABS Nucleated RBC 0.01 10^3/ul; Hematocrit 26.5 % (35-45); Hemoglobin 9.2 g/dL (11.5-14.3); Lymphocyte % 9.3 %; Mean Corpuscular Hemoglobin 30.4 pg (27-33); Mean Corpuscular Hgb Conc 34.7 g/dL (31-36); Mean Corpuscular Volume 87.6 fL (80-97); Platelet Count 249 10^3/uL (150-450); Red Blood Count 3.02 10^6/uL (3.63-4.92); Red Cell Distribution Width 13.8 % (12-17); White Blood Count 20.6 10^3/uL (3.8-11.8)
[2023-05-29 08:04] VITALS: BP 113/73
== END 2023-05-29 11:53 | disposition home or self-care (01) | DRG 540 ==
LOC: MCHOBOUT 15:32 → MCHOB 15:35
PROVIDERS: ADMIT Obstetrics & Gynecology; ATTEND Obstetrics & Gynecology